=== PATIENT | female | born 1970 | race Two or more races ===

== ENCOUNTER 2017-02-27 22:40 | Emergency (ER) | payer MEDICAID, OTHER ==
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
[2017-02-28 00:05] VITALS: BP 127/65
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
== END 2017-02-28 00:11 | disposition home or self-care (01) ==
LOC: MW.ED 22:40
DX: S09.90XA Unspecified injury of head, initial encounter (principal); S16.1XXA Strain of muscle, fascia and tendon at neck level, initial encounter; V89.2XXA Person injured in unspecified motor-vehicle accident, traffic, initial encounter; Y92.410 Unspecified street and highway as the place of occurrence of the external cause
CPT/HCPCS: 70450; 70450-26; 72125; 72125-26; 99284; 99284-25